=== PATIENT | male | born 1995 | race Two or more races ===

== ENCOUNTER 2016-12-25 03:04 | Emergency (ER) | payer OTHER ==
[~2016-12-25] VITALS: Ht 175.3 cm; Wt 57.6 kg
[2016-12-25] MEDS ORDERED: NKM (03:16)
--- NOTE | 2016-12-25 03:29 | Emergency Room Report ---
History of Present Illness General Chief Complaint: Vomiting Source: Patient Present Illness HPI Is a 21-year-old male with no past medical history. He presents with chief complaint abdominal pain and vomiting. He had eaten taco alvarez for dinner. He woke up a few hours later with cramps and vomiting. He's been vomiting for the last few hours. Denies any fever or chills. Denies any diarrhea. Pain is crampy and diffuse. No radiation. Allergies: Coded Allergies: No Known Allergies (Unverified , 12/25/16) Patient History Past Medical History: none, see triage record, old chart reviewed Past Surgical History: none Pertinent Family History: none Social History: Denies: drug use Immunizations: other Reviewed Nursing Documentation: PMH: Agreed, PSxH: Agreed Nursing Documentation-PMH Hx Asthma: Yes Review of Systems Eye: Denies: blurred vision, eye pain ENT: Denies: ear pain, nose congestion, throat swelling Respiratory: Denies: cough, shortness of breath Cardiovascular: Denies: chest pain, palpitations Gastrointestinal: Reports: abdominal pain, nausea, vomiting, Denies: diarrhea Musculoskeletal: Denies: back pain, joint pain Skin: Denies: rash Neurological: Denies: headache, numbness Endocrine: Denies: increased thirst, increased urine Hematologic/Lymphatic: Denies: easy bruising All Other Systems: negative except mentioned in HPI Physical Exam Vital Signs Date Time Temp Pulse Resp B/P Pulse Ox O2 Delivery O2 Flow Rate FiO2 12/25/16 03:10 97.9 76 18 141/109 99 Room Air vitals unremarkable Sp02 EP Interpretation: reviewed, normal General Appearance: well appearing, no apparent distress, alert Head: normocephalic, atraumatic Eyes: bilateral eye EOMI, bilateral eye PERRL ENT: hearing grossly normal, normal pharynx Neck: full range of motion, supple, no meningismus Respiratory: chest non-tender, lungs clear, normal breath sounds Cardiovascular #1: regular rate, rhythm, no murmur Gastrointestinal: normal bowel sounds, non tender, no mass, no organomegaly, no bruit, non-distended Musculoskeletal: back normal, gait/station normal, normal range of motion Psychiatric: mood/affect normal Skin: warm/dry Medical Decision Making Diagnostic Impression: Primary Impression: Vomiting Qualified Codes: R11.2 - Nausea with vomiting, unspecified Additional Impression: Food poisoning Qualified Codes: T62.91XA - Toxic effect of unspecified noxious substance eaten as food, accidental (unintentional), initial encounter ER Course Patient with abdominal cramps and vomiting. Most likely food poisoning. He felt better now. Labs unremarkable. We'll discharge home. Lab Results Impression labs unremarkable Last Vital Signs Date Time Temp Pulse Resp B/P Pulse Ox O2 Delivery O2 Flow Rate FiO2 12/25/16 03:10 97.9 76 18 141/109 99 Room Air Status: improved Disposition: HOME, SELF-CARE Condition: Stable Patient Instructions: Nausea and Vomiting, Adult Additional Instructions: Followup with your Dr. in 2-3 days if not better. Return if worse. CHARLES BRODY M.D. Dec 25, 2016 03:29
[2016-12-25] MEDS ORDERED: Ketorolac 30mg Inj IV ONE (03:30)
[2016-12-25 03:32] LABS: BASOPHILS % (AUTO) 0.9 % (0.0-2.0); EOSINOPHILS % (AUTO) 1.6 % (0.0-3.0); LYMPHOCYTES % (AUTO) 33.4 % (20.0-45.0); MEAN CORPUSCULAR HEMOGLOBIN 31.1 PG (27.0-31.0); MEAN CORPUSCULAR HGB CONC 33.9 G/DL (32.0-36.0); MEAN CORPUSCULAR VOLUME 92 FL (80-99); MEAN PLATELET VOLUME 7.6 FL (6.5-10.1); NEUTROPHILS % (AUTO) 54.1 % (45.0-75.0); PLATELET COUNT 233 K/UL (150-450); RED BLOOD COUNT 4.64 M/UL (4.70-6.10); RED CELL DISTRIBUTION WIDTH 11.7 % (11.6-14.8); WHITE BLOOD COUNT 8.5 K/UL (4.8-10.8)
[2016-12-25 03:46] LABS: ANION GAP 16 (5-15); CALCIUM 9.6 mg/dL (8.6-10.2); CARBON DIOXIDE 22 mEQ/L (20-30); CHLORIDE 105 mEQ/L (98-107); GLOMERULAR FILTRATION RATE > 60 mL/min (>60); HEMOLYSIS 3; POTASSIUM 3.9 mEQ/L (3.4-4.9); SODIUM 143 mEQ/L (135-145)
[2016-12-25 04:10] VITALS: BP 123/78
[2016-12-25 04:10] LABS: APPEARANCE,URINE CLEAR; KETONES,URINE NEGATIVE (NEGATIVE); LEUKOCYTE ESTERASE ,URINE NEGATIVE (NEGATIVE); NITRITE,URINE NEGATIVE (NEGATIVE); PH,URINE 6 (4.5-8.0); PROTEIN,URINE NEGATIVE (NEGATIVE); UROBILINOGEN,URINE NORMAL MG/DL (0.0-1.0)
[2016-12-25 04:16] VITALS: BP 123/78
== END 2016-12-25 04:17 | disposition home or self-care (01) ==
LOC: EMR 03:36
DX: R11.2 Nausea with vomiting, unspecified (principal); T62.91XA Toxic effect of unspecified noxious substance eaten as food, accidental (unintentional), initial encounter; X58.XXXA Exposure to other specified factors, initial encounter; Y92.9 Unspecified place or not applicable
CPT/HCPCS: 36415; 80048; 81003; 85025; 96361; 96374; 99284; J2405

== ENCOUNTER 2018-09-10 03:11 | Emergency (ER) | payer OTHER ==
[2018-09-10] VITALS (27 sets, daily range): BP systolic 104–130; BP diastolic 60–86
[~2018-09-10] VITALS: Ht 175.3 cm; Wt 58.5 kg
[~2018-09-10 03:11] MED LIST: NKM
[2018-09-10] MEDS ORDERED: LORazepam Inj 2mg/ml 1ml IM ONE (03:15)
[2018-09-10] MEDS ORDERED: Haloperidol 5mg/ml Inj IM ONE (03:15)
[2018-09-10] MEDS ORDERED: DiphenhydrAMINE 50mg/ml Inj IM ONE (03:15)
[2018-09-10 04:10] LABS: BASOPHILS % (AUTO) 0.8 % (0.0-2.0); EOSINOPHILS % (AUTO) 2.7 % (0.0-3.0); HEMATOCRIT 36.7 % (42.0-52.0); HEMOGLOBIN 12.5 G/DL (14.2-18.0); LYMPHOCYTES % (AUTO) 35.7 % (20.0-45.0); MEAN CORPUSCULAR VOLUME 91 FL (80-99); MONOCYTES % (AUTO) 13.8 % (1.0-10.0); PLATELET COUNT 271 K/UL (150-450); RED BLOOD COUNT 4.03 M/UL (4.70-6.10); RED CELL DISTRIBUTION WIDTH 12.1 % (11.6-14.8); WHITE BLOOD COUNT 8.2 K/UL (4.8-10.8)
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
[2018-09-10 04:21] LABS: ANION GAP 11 mmol/L (5-15); BLOOD UREA NITROGEN 16 mg/dL (7-18); CALCIUM 8.6 MG/DL (8.5-10.1); CARBON DIOXIDE 23 MMOL/L (21-32); CHLORIDE 106 MMOL/L (98-107); CREATININE 0.9 MG/DL (0.55-1.30); POTASSIUM 3.6 MMOL/L (3.5-5.1); SODIUM 140 MMOL/L (136-145)
[2018-09-10 04:26] LABS: ALANINE AMINOTRANSFERASE 30 U/L (12-78); ALBUMIN 3.5 G/DL (3.4-5.0); ALBUMIN/GLOBULIN RATIO 0.9 (1.0-2.7); ALKALINE PHOSPHATASE 72 U/L (46-116); ASPARTATE AMINO TRANSFERASE 26 U/L (15-37); BILIRUBIN,TOTAL 0.3 MG/DL (0.2-1.0)
[2018-09-11 01:35] VITALS: BP 121/69
[2018-09-11 03:40] VITALS: BP 120/71
[2018-09-11 06:38] VITALS: BP 124/79
[2018-09-11] MEDS ORDERED: DiphenhydrAMINE 50mg/ml Inj IM ONE (10:15)
[2018-09-11] MEDS ORDERED: LORazepam Inj 2mg/ml 1ml IM ONE (10:15)
[2018-09-11] MEDS ORDERED: Haloperidol 5mg/ml Inj IM ONE (10:30)
[2018-09-11 10:56] VITALS: BP 119/76
[2018-09-11 12:29] VITALS: BP 119/76
== END 2018-09-11 12:52 ==
LOC: EDBD 03:11 → EMR 03:25
DX: F29 Unspecified psychosis not due to a substance or known physiological condition (principal); F20.9 Schizophrenia, unspecified; J45.909 Unspecified asthma, uncomplicated
CPT/HCPCS: 36415; 80053; 80307; 85025; 96372; 99285; G0480; J1200; J1630; 80329

== ENCOUNTER 2019-05-03 10:52 | Emergency (ER) | payer OTHER ==
[~2019-05-03] VITALS: Ht 177.8 cm; Wt 59.0 kg
--- NOTE | 2019-05-03 11:00 | NUR ---
pt not in room
[2019-05-03 11:17] VITALS: BP 108/72
--- NOTE | 2019-05-03 11:18 | NUR ---
ED Nurse Note:pt. came with left lower toothache for 1 month
[2019-05-03] MEDS ORDERED: NAPROXEN500 M2 ORAL (12:12)
[2019-05-03] MEDS ORDERED: AMOXICILLIN500 MG ORAL (12:12)
--- NOTE | 2019-05-03 12:12 | Emergency Room Report ---
History of Present Illness General Chief Complaint: Toothache Source: Patient Present Illness HPI 23-year-old male with no significant past medical history here complaining of 1 month of left lower jaw pain and pus drainage from posterior molar. Patient is rating the pain 5 out of 10 without radiation denying tingling numbness. Has not taken any medication for pain. Denies sore throat, URI symptoms, chest pain , shortness of breath, fever and chills, palpitation, and other associated symptoms. Patient was unaware that he needs to see a dentist for dental pain. Patient also is requesting hospital food as he is hungry. Also was placed in the hallway very impatient to leave. Allergies: Coded Allergies: No Known Allergies (Unverified , 12/25/16) Patient History Past Medical History: see triage record Past Surgical History: unable to obtain Pertinent Family History: none Immunizations: UTD Reviewed Nursing Documentation: PMH: Agreed; PSxH: Agreed Nursing Documentation-PMH Past Medical History: No History, Except For Hx Asthma: Yes Review of Systems All Other Systems: negative except mentioned in HPI Physical Exam Vital Signs Date Time Temp Pulse Resp B/P (MAP) Pulse Ox O2 Delivery O2 Flow Rate FiO2 05/03/19 11:10 98.2 69 17 108/72 (84) 99 Room Air Sp02 EP Interpretation: reviewed, normal General Appearance: normal inspection, well appearing, no apparent distress, alert Head: normocephalic, atraumatic Eyes: bilateral eye normal inspection, bilateral eye PERRL ENT: normal pharynx, other - Left lower molar abscess Neck: normal inspection, full range of motion Respiratory: normal inspection, chest non-tender, lungs clear, no rhonchi, no wheezing Cardiovascular #1: normal inspection, normal peripheral pulses, regular rate, rhythm, no edema, no murmur Gastrointestinal: normal inspection, non tender, soft Genitourinary: no CVA tenderness Musculoskeletal: normal inspection, back normal, digits/nails normal, gait/ station normal Neurologic: normal inspection, alert, oriented x3, responsive, psychiatric social worker III-XII nml as tested Psychiatric: normal inspection, judgement/insight normal, memory normal Skin: normal inspection, normal color, no rash, warm/dry Lymphatic: normal inspection, no adenopathy Medical Decision Making PA Attestation All my diagnosis and treatment plans were reviewed ad discussed with my supervising physician Dr. Rush Diagnostic Impression: Primary Impression: Tooth infection ER Course 23-year-old male with no significant past medical history here complaining of 1 month of left lower jaw pain and pus drainage from posterior molar. Patient is rating the pain 5 out of 10 without radiation denying tingling numbness. Has not taken any medication for pain. Denies sore throat, URI symptoms, chest pain , shortness of breath, fever and chills, palpitation, and other associated symptoms. Patient was unaware that he needs to see a dentist for dental pain. Patient also is requesting hospital food as he is hungry. Also was placed in the hallway very impatient to leave. Ddx considered but are not limited to: Tooth infection, tooth abscess strep pharyngitis, URI, tonsilitis, peritonsillar absacess, influneza Vital signs: are WNL, pt. is afebrile H&PE are most consistent with: Tooth infection ORDERS: Amoxicillin, naproxen ED INTERVENTIONS: Amoxicillin DISCHARGE: At this time pt. is stable for d/c to home. Will provide printed patient care instructions, and any necessary prescriptions. Care plan and follow up instructions have been discussed with the patient prior to discharge. I asked the patient to follow-up with his dentist and take the medication as infected avoid eating with the affected side Last Vital Signs Date Time Temp Pulse Resp B/P (MAP) Pulse Ox O2 Delivery O2 Flow Rate FiO2 05/03/19 11:17 98.2 69 17 108/72 99 Room Air Disposition: HOME, SELF-CARE Condition: Stable Scripts Naproxen* (NAPROXEN*) 500 Mg Tablet 500 MG ORAL TWICE A DAY, #30 TAB Prov: Kenzie Riddle 05/03/19 Amoxicillin* (AMOXIL*) 500 Mg Capsule 500 MG ORAL EVERY 8 HOURS for 10 Days, #30 CAP Prov: Kenzie Riddle 05/03/19 Referrals: [facility],REFERRING (PCP) Patient Instructions: Dental Abscess, [id number], Dental Pain Additional Instructions: See a dentist as you are to most likely needs to be removed take medication as directed Kenzie Riddle May 03, 2019 12:12
--- NOTE | 2019-05-03 12:19 | NUR ---
ED Nurse Note: PT SITTING PEACEFULLY IN CHAIR IN NAD. AOX4. PRESCRIPTION AND DISCHARGE PAPERWORK EXPLAINED TO PT. PT VERBALIZES UNDERSTANDING AND ALL QUESTIONS ANSWERED. PRESCRIPTION AND DISCHARGE PAPERWORK GIVEN TO PT AND ID WRISTBAND REMOVED. PT WALKED OUT OF ER WITH STEADY GAIT AND ALL BELONGINGS.
[2019-05-03 12:20] VITALS: BP 112/76
== END 2019-05-03 12:21 | disposition home or self-care (01) ==
LOC: EMR 11:25
DX: K04.7 Periapical abscess without sinus (principal)
CPT/HCPCS: 99282